=== PATIENT | female | born 1930 | race Caucasian/White ===

== ENCOUNTER → 2017-05-13 | Outpatient (CLI) | payer OTHER | LOC: BRMIMAGING 15:31 | PROVIDERS: ATTEND Internal Medicine Hematology & Oncology | DX: Z12.31 Encounter for screening mammogram for malignant neoplasm of breast (principal); Z85.3 Personal history of malignant neoplasm of breast; Z90.11 Acquired absence of right breast and nipple | CPT/HCPCS: G0202-52 ==

== ENCOUNTER → 2017-11-19 | Outpatient (CLI) | payer OTHER | LOC: BRMIMAGING 12:05 | DX: M79.641 Pain in right hand (principal); R93.6 Abnormal findings on diagnostic imaging of limbs | CPT/HCPCS: 73130-PO ==

== ENCOUNTER → 2017-12-30 | Outpatient (CLI) | payer OTHER | LOC: BHCLAF 14:15 | PROVIDERS: ATTEND Internal Medicine Cardiovascular Disease | DX: I10 Essential (primary) hypertension (principal) | CPT/HCPCS: 93005-PO ==

== ENCOUNTER → 2018-04-30 | Outpatient (CLI) | payer OTHER | LOC: BHFA 15:30 | PROVIDERS: ATTEND Internal Medicine Cardiovascular Disease | DX: I34.0 Nonrheumatic mitral (valve) insufficiency (principal); I10 Essential (primary) hypertension ==

== ENCOUNTER → 2018-05-14 | Outpatient (CLI) | payer OTHER | LOC: BRMIMAGING 11:18 | PROVIDERS: ATTEND Internal Medicine Hematology & Oncology | DX: Z12.31 Encounter for screening mammogram for malignant neoplasm of breast (principal); Z85.3 Personal history of malignant neoplasm of breast; Z90.11 Acquired absence of right breast and nipple ==

== ENCOUNTER 2018-08-26 09:51 | Day surgery (SDC) | payer OTHER ==
--- NOTE | 2018-08-26 10:20 | GHP ---
[f rep st] PREOP HISTORY AND PHYSICAL DATE OF ADMISSION: 08/26/2018 CHIEF COMPLAINT: B-cell lymphoma. 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 She presents for surgical evaluation for port placement. She also reports that she has a large skin lesion on her left lower extremity that she would like biopsied at the same time. PAST MEDICAL HISTORY: Breast cancer, renal insufficiency, osteoporosis, hyperproliferative anemia, hypertension, tinnitus, rheumatic fever, irritable bowel syndrome, mitral valve regurgitation PAST SURGICAL HISTORY: Mastectomy, previous port placement SOCIAL HISTORY: The patient is a nonsmoker and does not consume alcohol or recreational drugs. MEDICATIONS: Levothyroxine 25 mcg daily, losartan potassium 50 mg daily, metoprolol tartrate 50 mg daily, clonidine 0.1 mg b.i.d. ALLERGIES: Amoxicillin and penicillins give her a rash. PHYSICAL EXAM: GENERAL: This is a well-appearing, well-dressed, elderly female in no acute distress. HEENT: Pupils equal and round. Head: Normocephalic, atraumatic. No gross hearing episodes. Mucous membranes are moist. CARDIAC: Regular rate and rhythm. No clicks, murmurs or rubs. RESPIRATORY: Clear to auscultation bilaterally. ABDOMEN: Soft, nontender, nondistended. NEUROLOGIC: Alert and oriented x3. PSYCHIATRIC: Appropriate mood and affect. MUSCULOSKELETAL: Left lower extremity has a diffuse macular skin lesion extending from the knee down to the ankle anteriorly and laterally. It is nontender to touch. It blanches. IMPRESSION AND PLAN: This is an 88-year-old female with a history of breast cancer who was recently diagnosed with B-cell lymphoma approximately 3 months ago. She has plans to undergo chemotherapy and will need a port placement. I discussed all the options of the surgery including, but not limited to, infection, bleeding, pneumothorax, heart attack and . Patient understands and wishes to proceed. She has also requested that we biopsy a large skin lesion on her left lower extremity, which we will do at the time of surgery. The patient has obtained cardiac clearance prior to surgery. /[id number]/MODL MTDD
[2018-08-26] MEDS ORDERED: VANCOMYCIN PHARMACY TO DOSE MISC ONE (10:22)
[2018-08-26] MEDS ORDERED: LR 1,000 ML IV ONE (10:23)
[2018-08-26] MEDS ORDERED: VANCOMYCIN 750 MG in D5W 150 ML IV ONE (10:30)
--- NOTE | 2018-08-26 10:38 | PDHPUP ---
History & Physical Update H&P update statement: This history and physical update is based on an assessment of the patient which was completed after admission or registration (within 24 hours), but prior to the surgery/procedure. H&P update: H&P reviewed & patient examined, no change in patient's condition since H&P completed
[2018-08-26] MEDS ORDERED: BUPIVACAINE 0.5% 30 ML SDV ONE (11:55)
--- NOTE | 2018-08-26 12:34 | PDANEPAE ---
ANE History of Present Illness 88 y/o with b cell lymphoma ANE Past Medical History - Cardiovascular History Hx Hypertension: Yes Hx Arrhythmias: Yes Hx Chest Pain: No Hx Coronary Artery / Peripheral Vascular Disease: No Hx CHF / Valvular Disease: No Hx Palpitations: No Cardiovascular History Comment: htn. mitral regurgitation. afib. pvc's. followed by [facility] - Pulmonary History Hx COPD: No Hx Asthma/Reactive Airway Disease: No Hx Recent Upper Respiratory Infection: No Hx Oxygen in Use at Home: No Hx Sleep Apnea: No Sleep Apnea Screening Result - Last Documented: Negative - Neurologic History Hx Cerebrovascular Accident: No Hx Seizures: No Hx Dementia: No Neurologic History Comment: chronic vertigo and tinnitus, having MRI 08/27/18 - Endocrine History Hx Diabetes: No Endocrine History Comment: hypothyroidism - Renal History Hx Renal Disorders: Yes Renal History Comment: renal insufficiency was followed by [facility] but now pcp is monitoring - Liver History Hx Hepatic Disorders: No - Neurological & Psychiatric Hx Hx Neurological and Psychiatric Disorders: No - Cancer History Hx Cancer: Yes Cancer History Comment: breast ca. B cell lymphoma - Congenital Disorder History Hx Congenital Disorders: No - GI History Hx Gastrointestinal Disorders: Yes Gastrointestinal History Comment: ibs - Other Health History Other Health History: wears bilateral hearing aides. patches of scaly skin all over body - Chronic Pain History Chronic Pain: No - Surgical History Prior Surgeries: tonsillectomy. right breast mastectomy. julia. cataract surgery. eye surgery in high school for eyes being crossed ANE Review of Systems Review of Systems: - Exercise capacity METS (RN): 4 METS ANE Patient History - Allergies Allergies/Adverse Reactions: amoxicillin trihydrate [From Amoxil] Allergy (Verified 08/25/18 17:14) RASH,SWELLING cephalexin monohydrate [From Keflex] Allergy (Verified 08/25/18 17:14) RASH AND SWELLING - Home Medications Home Medications: Clonidine BID 07/25/11 [Last Taken 08/26/18 08:30] Levothyroxine 07/25/11 [Last Taken 08/26/18 08:30] Herbals/Supplements -Info Only 08/25/18 [Last Taken 08/25/18] Metoprolol Succinate 08/25/18 [Last Taken 08/25/18] Valsartan 1600 08/25/18 [Last Taken 08/25/18] - NPO status NPO Status: no food or drink >8 hours NPO Since - Liquids (Date): 08/26/18 NPO Since - Liquids (Time): 08:30 NPO Since - Solids (Date): 08/25/18 NPO Since - Solids (Time): 23:00 - Anes Hx Anes Hx: no prior problems - Smoking Hx Smoking Status: Never smoked - Family Anes Hx Family Hx Anesthesia Complications: none ANE Labs/Vital Signs - Vital Signs Heart Rate: 67 Respiratory Rate: 16 O2 Sat (%): 96 Height: 157.48 cm Weight: 48.081 kg ANE Physical Exam - Airway Neck exam: FROM Mallampati Score: Class 2 Mouth exam: normal dental/mouth exam - Pulmonary Pulmonary: clear to auscultation - Cardiovascular Cardiovascular: regular rate and rhythym - ASA Status ASA Status: IV ANE Anesthesia Plan Anesthesia Plan: MAC
[2018-08-26] MEDS ORDERED: PROPOFOL 200 MG/20 ML VIAL ONE (12:35)
--- NOTE | 2018-08-26 12:47 | POSTOPPROG ---
Post Op Note Date of Operation: 08/26/18 Surgeon: Av Garg Sales Development Coordinator: none Anesthesiologist: Zeenat Sparrow Anesthesia: GET(General Endotracheal) Pre-op Diagnosis: lymphoma Post-op Diagnosis: same Procedure: low profile power port placement c flouro Findings: good position and flow Inf/Abcess present in the surg proc area at time of surgery?: No EBL: Minimal Complications: none Specimen(s): none
[2018-08-26] MEDS ORDERED: fentaNYL 100 MCG/2 ML INJ ONE (13:08)
[2018-08-26] MEDS ORDERED: LABETALOL HCL 5 MG/ML 20 ML MDV ONE (13:13)
[2018-08-26] MEDS ORDERED: hydrALAZINE 20 MG/ML VIAL ONE (13:13)
[2018-08-26] MEDS ORDERED: METOPROLOL TARTRATE 5 MG/5 ML INJ ONE (13:13)
[2018-08-26] MEDS ORDERED: LIDOCAINE 1% 300 MG/30 ML SDV ONE (13:16)
[2018-08-26] MEDS ORDERED: ONDANSETRON 4 MG/2 ML VIAL IVP PRN (13:35)
[2018-08-26] MEDS ORDERED: ACETAMINOPHEN 500 MG TAB PO PRN (13:35)
[2018-08-26] MEDS ORDERED: LABETALOL HCL 5 MG/ML 20 ML MDV IVP PRN (13:35)
[2018-08-26] MEDS ORDERED: fentaNYL 100 MCG/2 ML INJ IVP PRN (13:35)
[2018-08-26] MEDS ORDERED: LR 500 ML IV PRN (13:35)
[2018-08-26] MEDS ORDERED: MEPERIDINE 25 MG/0.5 ML AMP IVP PRN (13:35)
[2018-08-26] MEDS ORDERED: NALOXONE HCL 0.4 MG/ML INJ IVP PRN (13:35)
[2018-08-26] MEDS ORDERED: ALBUTEROL 3 ML DEYVIAL IH PRN (13:35)
[2018-08-26] MEDS ORDERED: hydrALAZINE 20 MG/ML VIAL IVP PRN (15:06)
[2018-08-26] MEDS ORDERED: LOSARTAN POTASSIUM 50 MG TAB PO SCH (15:15)
[2018-08-26 16:20] VITALS: BP 154/76
--- NOTE | 2018-08-27 09:05 | GOP ---
[f rep st] OPERATIVE REPORT DATE OF OPERATION: 08/26/2018 SURGEON: Av Garg MD ANESTHESIA: IV sedation and monitored anesthesia care. ANESTHESIOLOGIST: Zeenat Sparrow MD PREOPERATIVE DIAGNOSIS: Recurrent lymphoma. POSTOPERATIVE DIAGNOSIS: Recurrent lymphoma. PROCEDURE PERFORMED: Left subclavian port placement with fluoroscopic guidance. FINDINGS: good position and good flow of the port. ESTIMATED BLOOD LOSS: Negligible. DESCRIPTION OF PROCEDURE: Patient taken to the operating room where she received IV sedation and monitored anesthesia care by Dr. Sparrow. She was prepped and draped in the usual sterile fashion and anesthetized with 1% Xylocaine local infiltration. She was placed in Trendelenburg. A single stick was made in the left subclavian vein. Guidewire was introduced, position was confirmed with fluoroscopy. A subcu pocket was made in the 2nd intercostal space, again using 1% Xylocaine local infiltration. Port tubing was passed from that pocket to the subclavian insertion site. It was trimmed to the appropriate length using fluoroscopic guidance and introduced via the introducer sheath and dilator system which were then removed. Good backflow was present. The catheter was flushed with heparin saline. The port was secured to the fascia with 3-0 Vicryl, pocket was closed with 3-0 Vicryl for the subcu, 4-0 Prolene subcuticular stitch for the skin and a 4-0 Prolene mattress suture at the entrance site. All wounds were infiltrated with 0.5% Marcaine. There were no complications. Patient taken to recovery room in good condition. /[id number]/MODL MTDD
== END 2018-08-26 16:40 | disposition home or self-care (01) ==
LOC: FSGY 09:51
PROVIDERS: ATTEND Surgery
DX: C85.10 Unspecified B-cell lymphoma, unspecified site (principal); L98.9 Disorder of the skin and subcutaneous tissue, unspecified; M81.0 Age-related osteoporosis without current pathological fracture; I10 Essential (primary) hypertension; I34.0 Nonrheumatic mitral (valve) insufficiency; K58.9 Irritable bowel syndrome, unspecified; Z85.3 Personal history of malignant neoplasm of breast; Z90.11 Acquired absence of right breast and nipple
CPT/HCPCS: C1788; J0360; J1642; J2704; J3010; J3370

== ENCOUNTER → 2018-09-04 | Outpatient (CLI) | payer OTHER ==
[~2018-09-04] MED LIST: GADOBUTROL 10 ML VIAL IVP ONE
== END ==
LOC: FIMAGING 10:57
PROVIDERS: ATTEND Internal Medicine Hematology & Oncology
DX: J34.89 Other specified disorders of nose and nasal sinuses (principal); R90.82 White matter disease, unspecified; C83.30 Diffuse large B-cell lymphoma, unspecified site; C50.919 Malignant neoplasm of unspecified site of unspecified female breast
CPT/HCPCS: 70553; A9585; 82565-PO